=== PATIENT | male | born 1985 ===

== ENCOUNTER 2019-12-01 18:16 | Emergency (ER) | payer OTHER ==
[~2019-12-01] VITALS: Ht 177.8 cm; Wt 115.7 kg
== END 2019-12-01 21:09 | disposition home or self-care (01) ==
LOC: ER 18:16
DX: A05.9 Bacterial foodborne intoxication, unspecified (principal); Z03.818 Encounter for observation for suspected exposure to other biological agents ruled out; R11.2 Nausea with vomiting, unspecified; R19.7 Diarrhea, unspecified